=== PATIENT | male | born 1990 | race Caucasian/White ===

== ENCOUNTER 2016-08-26 11:52 | Emergency (ER) | payer MEDICAID ==
[2016-08-26 12:13] VITALS: BP 136/78; PULSE 88; RESP 18; TEMP 98.8; O2SAT 95
== END 2016-08-26 12:45 | disposition left against medical advice (07) ==
LOC: CED 11:52
DX: R11.2 Nausea with vomiting, unspecified (principal); Z53.8 Procedure and treatment not carried out for other reasons